=== PATIENT | male | born 1965 | race Caucasian/White ===

== ENCOUNTER 2018-01-08 21:45 | Emergency (ER) | payer BC ==
--- NOTE | 2018-01-08 23:42 | ED ---
Upper Extremity Pain - HPI Summary HPI Summary: 52 male presents to ER with complaints of right elbow pain after fall. Patient states he was pushing his in a wheelchair on the took a tumble and fell on his right arm just prior to arrival. Has no pain at rest however with external rotation has significant pain over the elbow/upper forearm. Denies any obvious swelling or bruising. Patient is right-hand dominant. No other complaints or injuries. Did not hit had no loss of consciousness. Denies numbness and tingling. No past medical history. No previous injury to the right elbow - History of Current Complaint Chief Complaint: EDExtremityUpper Stated Complaint: FALL/RT ARM INJURY Time Seen by Provider: 01/08/18 22:16 Hx Obtained From: Patient Mechanism Of Injury: Fall From A Standing Position Onset/Duration: Started Hours Ago, Traumatic Timing: Constant Severity Initially: Mild Severity Currently: Moderate - With external rotation Pain Location: Elbow - Right, Forearm Character: Sharp, Aching Aggravating Factor(s): Internal/External Rotation - External Alleviating Factor(s): Rest Associated Signs & Symptoms: Positive: Negative Related History: Dominant Hand Right - Allergies/Home Medications Allergies/Adverse Reactions: Allergies Allergy/AdvReac Type Severity Reaction Status Date / Time No Known Allergies Allergy Verified 01/08/18 21:54 PMH/Surg Hx/FS Hx/Imm Hx Endocrine/Hematology History: Denies: Hx Anticoagulant Therapy, Hx Diabetes Cardiovascular History: Denies: Hx Hypertension Respiratory History: Denies: Hx Asthma - Surgical History Surgery Procedure, Year, and Place: Left elbow 20 years ago - Immunization History Immunizations Up to Date: Yes Infectious Disease History: No Infectious Disease History: Denies: Traveled Outside the [place] in Last 30 Days - Family History Known Family History: Positive: None - Social History Alcohol Use: Occasionally Substance Use Type: Reports: None Smoking Status (MU): Never Smoked Tobacco Review of Systems Constitutional: Negative Cardiovascular: Negative Respiratory: Negative Positive: Arthralgia, Myalgia - right forearm Skin: Negative Neurological: Negative All Other Systems Reviewed And Are Negative: Yes Physical Exam Triage Information Reviewed: Yes Vital Signs On Initial Exam: Initial Vitals Temp Pulse Resp BP Pulse Ox 98.1 F 90 16 137/104 99 01/08/18 21:52 01/08/18 21:52 01/08/18 21:52 01/08/18 21:52 01/08/18 21:52 Vital Signs Reviewed: Yes Appearance: Positive: Well-Appearing, No Pain Distress, Well-Nourished Skin: Positive: Warm, Skin Color Reflects Adequate Perfusion, Dry. Negative: Cold, Numb, Cyanosis @, Pale, Erythema @ Head/Face: Positive: Normal Head/Face Inspection Eyes: Positive: Conjunctiva Clear ENT: Positive: Hearing grossly normal Neck: Positive: Supple, Nontender Respiratory/Lung Sounds: Positive: Clear to Auscultation, Breath Sounds Present. Negative: Rales, Rhonchi, Wheezes Cardiovascular: Positive: Normal, RRR, Pulses are Symmetrical in both Upper and Lower Extremities. Negative: Murmur, Rub Musculoskeletal: Positive: Limited @ - With external rotation of the right forearm due to pain. With passive and active, Pain @ - Proximal radius right elbow, Other - Rest of skin exam normal nontender to palpation. Negative: Interruption @, Edema Left, Edema Right Neurological: Positive: Normal, Sensory/Motor Intact, Alert, Oriented to Person Place, Time, NV Bundle Intact Distally, Normal Gait Procedures - Splinting Location: right elbow Hand-Made Type: orthoglass Splint: serial on arm Pre-Proc Neuro Vasc Exam: normal Post-Proc Neuro Vasc Exam: normal, unchanged from pre-exam Diagnostics - Vital Signs Vital Signs Temp Pulse Resp BP Pulse Ox 01/08/18 21:52 98.1 F 90 16 137/104 99 - Laboratory Lab Statement: Any lab studies that have been ordered have been reviewed, and results considered in the medical decision making process. - Radiology right elbow Xray Interpretation: Positive (See Comments) - Avulsion fracture questionable Radiology Interpretation Completed By: ED Physician - Dr. Cardenas and myself Course/Dx - Course Course Of Treatment: Due to questionable avulsion fracture of the right elbow patient was placed in a posterior long arm splint. Also placed in a sling. Patient is now any pain management. Possible tendon injury due to avulsion fracture and pain with internal/external rotation. Rest of skin exam normal normal vitals. No other injuries. Follow-up with primary care for elevated blood pressure. Follow-up with or so for further treatment and imaging. Rice and ibuprofen. Splint wet. Aware worsening signs and symptoms watch out for. No other concerns at this time. All questions are answered. Patient agrees and understands plan - Diagnoses Differential Diagnosis/HQI/PQRI: Positive: Fracture (Closed), Strain, Sprain Provider Diagnoses: Avulsion fracture, Elbow fracture, right, Injury of tendon of elbow Discharge - Sign-Out/Discharge Documenting (check all that apply): Discharge/Admit/Transfer - Discharge Plan Condition: Good Disposition: HOME Patient Education Materials: Elbow Fracture (ED), Splint Care (ED), Elbow Sprain (ED), Avulsion Fracture (ED) Referrals: Dawn Penn MD [Medical Doctor] - Additional Instructions: make an appointment to follow up with ortho for further evaluation. refrain from use, jose antonio wrap and sling. Do not get splint wet. rest, ice and elevate. ibuprofen/tylenol for pain and inflammation, as needed, with food. - Billing Disposition and Condition Condition: GOOD Disposition: HOME
[2018-01-09 00:15] VITALS: BP 132/91
--- NOTE | 2018-01-09 07:43 | RAD ---
HISTORY: Right elbow pain COMPARISONS: None VIEWS: 4, Frontal, lateral, and oblique views of the right elbow FINDINGS: BONE DENSITY: Normal. BONES: There is a well-corticated bone fragment along the medial epicondyle which may reflect remote avulsion injury. There is a probable nondisplaced fracture of the radial neck. JOINTS: There is no arthropathy. ALIGNMENT: There is no dislocation. SOFT TISSUES: Unremarkable. OTHER FINDINGS: None. IMPRESSION: PROBABLE NONDISPLACED FRACTURE OF THE RADIAL NECK. RECOMMEND ATTENTION ON FOLLOW-UP IMAGING.
== END 2018-01-09 00:16 | disposition home or self-care (01) ==
LOC: ED 21:45
DX: S52.134A Nondisplaced fracture of neck of right radius, initial encounter for closed fracture (principal); S59.901A Unspecified injury of right elbow, initial encounter; M25.521 Pain in right elbow; W19.XXXA Unspecified fall, initial encounter; Y92.9 Unspecified place or not applicable
CPT/HCPCS: 99282